=== PATIENT | female | born 1960 | race Two or more races ===

== ENCOUNTER 2016-07-08 02:17 | Emergency (ER) | payer MEDICAID ==
[~2016-07-08] VITALS: Ht 157.5 cm; Wt 77.1 kg
[~2016-07-08 02:17] MED LIST: CHL25T PO; CHLO100T4 PO; DIVA250T51 PO; FLUO1TAB3 PO; GLIP-115 PO; IBUP600T27 PO; LEVO25TA6 PO; LISI2.5T47 PO; METF-316 PO; OLAN10TA23 PO; PROP60CA8 PO; ROPI1TAB22 PO; TOPI100T68 PO; TRAZ100T2 PO; TRIH2TAB3 PO
[2016-07-08] MEDS ORDERED: HALOPERIDOL 5 MG TAB PO ONE (03:00)
[2016-07-08 03:55] VITALS: BP 157/136
== END 2016-07-08 06:14 | disposition home or self-care (01) ==
LOC: EDBD 02:17 → ER 02:21
DX: F31.9 Bipolar disorder, unspecified (principal); F20.9 Schizophrenia, unspecified; E11.9 Type 2 diabetes mellitus without complications; I10 Essential (primary) hypertension; Z90.710 Acquired absence of both cervix and uterus; Z88.6 Allergy status to analgesic agent; Z76.0 Encounter for issue of repeat prescription; F17.210 Nicotine dependence, cigarettes, uncomplicated; F12.10 Cannabis abuse, uncomplicated

== ENCOUNTER 2017-06-23 23:13 | Observation (INO) | payer MEDICAID ==
[~2017-06-23] VITALS: Ht 154.9 cm; Wt 72.6 kg
[~2017-06-23 23:13] MED LIST changes: -METF-316 PO; +METF-372 PO
[2017-06-24 03:58] LABS: Basophils # (auto) 0.1 uL; Eosinophils # (auto) 0.1 uL; Eosinophils % (auto) 1.6 % (0.0-7.0); Hematocrit 44.1 % (36.0-46.0); Hemoglobin 15.1 g/dL (12.2-16.2); Lymphocytes # (auto) 2.7 uL; Lymphocytes % (auto) 30.4 % (10.0-50.0); Mean Corpuscular Hgb Conc. 34.3 g/dL (32.0-36.0); Mean Corpuscular Volume 90.3 fL (80.0-100.0); Monocytes # (auto) 0.6 uL; Monocytes % (auto) 6.9 % (0.0-12.0); Neutrophils # (auto) 5.4 uL; Neutrophils % (auto) 60.1 % (37.0-80.0); Nucleated Red Blood Cells % 0.1 %; Platelet Count (auto) 342 10^3/uL (140-450); Red Blood Cells 4.88 10^6/uL (4.0-5.20); Red Cell Distribution Width 13.7 % (11.8-14.3)
[2017-06-24 04:16] LABS: Alanine Aminotransferase 28 U/L (13-56); Albumin 3.9 g/dL (3.4-5.0); Anion Gap 7 (5-15); Aspartate Aminotransferase 17 U/L (15-37); Blood Alcohol < 3.0 mg/dL (0-5); Blood Urea Nitrogen 12 mg/dL (7-18); Calcium 8.3 mg/dL (8.5-10.1); Carbon Dioxide 27 mmol/L (21-32); Chloride 100 mmol/L (98-107); GFR African American 53 mL/min; GFR Non-African American 44 mL/min; Glucose 174 mg/dL (74-106); Magnesium 1.2 mg/dL (1.6-2.6); Potassium 3.7 mmol/L (3.5-5.1); Sodium 134 mmol/L (136-145)
[2017-06-24 04:19] LABS: Alkaline Phosphatase 77 U/L (45-117); Bilirubin, Total 0.8 mg/dL (0.2-1.0); Total Protein 8.1 g/dL (6.4-8.2)
[2017-06-24 05:17] LABS: Urine Amorphous Crystal MANY /hpf (None Seen); Urine Bacteria FEW /hpf (None Seen); Urine Blood Negative /uL (Negative); Urine Specific Gravity 1.009 (1.001-1.035); Urine WBC 4 /hpf (0 - 5)
[2017-06-24 05:35] LABS: Alcohol, Urine < 3.0 mg/dL (0-5); Amphetamine Screen, Urine POSITIVE (NEGATIVE); Barbiturate Scree,Urine NEGATIVE (NEGATIVE); Benzodiazephine Screen, Urine NEGATIVE (NEGATIVE); Cannabinoid Screen, Urine NEGATIVE (NEGATIVE); Cocaine Screen, Urine NEGATIVE (NEGATIVE); Opiate Scree,Urine NEGATIVE (NEGATIVE); Phencyclidine Screen, Urine NEGATIVE (NEGATIVE)
[2017-06-24] MEDS ORDERED: cefTRIAXone SOD 1,000 MG VL IM ONE (05:45)
[2017-06-24] MEDS ORDERED: LORazepam 0.5 MG TAB PO ONE (05:45)
[2017-06-26] MEDS ORDERED: LORazepam 0.5 MG TAB PO ONE ×2 (08:45→10:30)
[2017-06-26] MEDS ORDERED: OLANZapine 5 MG TAB PO ONE ×2 (08:45→10:15)
[2017-06-26] MEDS ORDERED: glipiZIDE 5 MG TAB PO ONE ×2 (08:45→10:30)
[2017-06-26] MEDS ORDERED: metFORMIN HYDROCHLORIDE 500 MG TAB PO ONE ×2 (08:45→10:15)
[2017-06-27] MEDS: OLANZapine 5 MG TAB PO SCH (10:40)
[2017-06-27] MEDS: glipiZIDE 5 MG TAB PO SCH (10:40)
[2017-06-27] MEDS: metFORMIN HYDROCHLORIDE 500 MG TAB PO SCH (10:40)
[2017-06-28 07:06] VITALS: BP 138/64
[2017-06-28] MEDS ORDERED: CIPROFLOXACIN HCL 500 MG TAB ONE (11:09)
[2017-06-28] MEDS ORDERED: CIPROFLOXACIN HCL 500 MG TAB PO ONE (11:10)
[2017-06-28] MEDS: OLANZapine 5 MG TAB PO SCH (11:18)
[2017-06-28] MEDS: glipiZIDE 5 MG TAB PO SCH (11:18)
[2017-06-28] MEDS: metFORMIN HYDROCHLORIDE 500 MG TAB PO SCH (11:18)
[2017-06-28] MEDS ORDERED: CIPROFLOXACIN HCL 500 MG TAB PO SCH (22:00)
== END 2017-06-28 08:37 | disposition home or self-care (01) | DRG 756 ==
LOC: EDBD 23:13 → ER 23:18 → OVERFLOW 23:19 → ER 06-28 08:37
PROVIDERS: ADMIT Physician Assistant; ATTEND Physician Assistant
DX: R45.851 Suicidal ideations (principal); I10 Essential (primary) hypertension; F32.9 Major depressive disorder, single episode, unspecified; F41.9 Anxiety disorder, unspecified; E11.9 Type 2 diabetes mellitus without complications; F17.210 Nicotine dependence, cigarettes, uncomplicated; Z90.710 Acquired absence of both cervix and uterus; N39.0 Urinary tract infection, site not specified; F15.10 Other stimulant abuse, uncomplicated
CPT/HCPCS: 36415; 71046; 80053; 80307; 80320; 80329; 81001; 82962; 83735; 85025; 96372; 99285; G0378; J0696

== ENCOUNTER 2018-01-19 19:30 | Emergency (ER) | payer MEDICAID ==
[~2018-01-19] VITALS: Ht 167.6 cm; Wt 72.6 kg
[~2018-01-19 19:30] MED LIST changes: -CHL25T PO; -DIVA250T51 PO; -IBUP600T27 PO; +PROP60CA34 PO; -PROP60CA8 PO; +ROPI1TAB PO; -ROPI1TAB22 PO
[2018-01-19 20:26] LABS: Basophils # (auto) 0 uL; Basophils % (auto) 0.3 % (0.0-2.0); Eosinophils # (auto) 0 uL; Eosinophils % (auto) 0.4 % (0.0-7.0); Hematocrit 46.6 % (36.0-46.0); Hemoglobin 15.9 g/dL (12.2-16.2); Lymphocytes # (auto) 1.7 uL; Lymphocytes % (auto) 14.9 % (10.0-50.0); Mean Corpuscular Hemoglobin 31.3 pg (28.0-32.0); Mean Corpuscular Hgb Conc. 34.1 g/dL (32.0-36.0); Mean Corpuscular Volume 91.8 fL (80.0-100.0); Monocytes # (auto) 0.8 uL; Monocytes % (auto) 7.4 % (0.0-12.0); Neutrophils # (auto) 8.6 uL; Nucleated Red Blood Cells % 0.1 %; Platelet Count (auto) 365 10^3/uL (140-450); Red Blood Cells 5.08 10^6/uL (4.0-5.20); White Blood Cell 11.2 10^3/uL (4.4-10.8)
[2018-01-19 20:40] LABS: Albumin 4.3 g/dL (3.4-5.0); Anion Gap 16 (5-15); BUN/Creatinine Ratio 14.8; Blood Alcohol < 3.0 mg/dL (0-5); Blood Urea Nitrogen 23 mg/dL (7-18); Calcium 9.5 mg/dL (8.5-10.1); Carbon Dioxide 19 mmol/L (21-32); Chloride 99 mmol/L (98-107); GFR African American 44 mL/min; GFR Non-African American 37 mL/min; Glucose 242 mg/dL (74-106); Potassium 3.6 mmol/L (3.5-5.1); Sodium 134 mmol/L (136-145)
[2018-01-19 20:44] LABS: Alanine Aminotransferase 32 U/L (13-56); Alkaline Phosphatase 83 U/L (45-117); Aspartate Aminotransferase 29 U/L (15-37); Bilirubin, Total 1.2 mg/dL (0.2-1.0); Total Protein 8.9 g/dL (6.4-8.2)
[2018-01-19] MEDS ORDERED: LORazepam 2MG/ML-1ML VIAL IV ONE (20:45)
[2018-01-19] MEDS ORDERED: diphenhdrAMINE HCL 50 MG/1 ML VL IV ONE (20:45)
[2018-01-19] MEDS ORDERED: HALOPERIDOL LACTATE 5 MG/ML INJ VIAL IM ONE (20:45)
[2018-01-19] MEDS ORDERED: NALOXONE HCL 0.4 MG/ML VIAL ONE (23:04)
[2018-01-19] MEDS ORDERED: SODIUM CHLORIDE 0.9% 1,000 ML IV ONE (23:30)
[2018-01-20 06:44] LABS: Urine Bacteria MANY /hpf (None Seen); Urine Blood TRACE /uL (Negative); Urine Hyaline Cast MANY /lpf (0 - 2); Urine Mucus FEW (None Seen); Urine Specific Gravity 1.026 (1.001-1.035); Urine WBC 8 /hpf (0 - 5)
[2018-01-20 06:54] LABS: Amphetamine Screen, Urine POSITIVE (NEGATIVE); Barbiturate Scree,Urine NEGATIVE (NEGATIVE); Benzodiazephine Screen, Urine NEGATIVE (NEGATIVE); Cannabinoid Screen, Urine NEGATIVE (NEGATIVE); Cocaine Screen, Urine NEGATIVE (NEGATIVE); Opiate Scree,Urine NEGATIVE (NEGATIVE); Phencyclidine Screen, Urine NEGATIVE (NEGATIVE)
[2018-01-20 13:50] VITALS: BP 117/66
== END 2018-01-20 17:10 | disposition home or self-care (01) ==
LOC: EDBD 19:30 → ER 19:30
DX: R41.82 Altered mental status, unspecified (principal); F31.9 Bipolar disorder, unspecified; E11.65 Type 2 diabetes mellitus with hyperglycemia; F20.9 Schizophrenia, unspecified; F19.10 Other psychoactive substance abuse, uncomplicated; I10 Essential (primary) hypertension; F17.210 Nicotine dependence, cigarettes, uncomplicated; Z91.14 Patient's other noncompliance with medication regimen; Z90.710 Acquired absence of both cervix and uterus; Z88.6 Allergy status to analgesic agent; Z79.899 Other long term (current) drug therapy
CPT/HCPCS: 36415; 70450; 80053; 80307; 80320; 81001; 85025; 93005; 96361; 96372; 96374; 96375; 99285; J1630; J2060

== ENCOUNTER 2018-08-31 00:37 | Emergency (ER) | payer MEDICAID ==
[~2018-08-31] VITALS: Ht 160 cm; Wt 72.6 kg
[~2018-08-31 00:37] MED LIST changes: -FLUO1TAB3 PO; -ROPI1TAB PO; -TOPI100T68 PO; -TRIH2TAB3 PO
[2018-08-31] MEDS ORDERED: HALOPERIDOL 5 MG TAB PO ONE (07:45)
[2018-08-31] MEDS ORDERED: LORazepam 0.5 MG TAB PO ONE (09:00)
[2018-08-31 11:21] VITALS: BP 112/92
== END 2018-08-31 10:28 | disposition home or self-care (01) ==
LOC: EDBD 00:37 → ER 00:40
DX: F41.9 Anxiety disorder, unspecified (principal); F20.9 Schizophrenia, unspecified; E11.9 Type 2 diabetes mellitus without complications; I10 Essential (primary) hypertension; F31.9 Bipolar disorder, unspecified; F17.210 Nicotine dependence, cigarettes, uncomplicated; F15.90 Other stimulant use, unspecified, uncomplicated; Z90.710 Acquired absence of both cervix and uterus
CPT/HCPCS: 82962